=== PATIENT | female | born 1990 | race Caucasian/White ===

== ENCOUNTER 2021-02-02 14:01 | Emergency (ER) | payer MEDICAID ==
[~2021-02-02] VITALS: Ht 170.2 cm; Wt 149.7 kg
[2021-02-02 14:34] VITALS: BP_SYST 149
[2021-02-02 15:27] LABS: BASOPHILS % (AUTO) 0.5 % (0.0-2.0); EOSINOPHILS # (AUTO) 0.1 K/uL (0.0-0.4); HEMATOCRIT 41.7 % (36-48); HEMOGLOBIN 13.9 g/dL (12.0-16.0); LYMPHOCYTES # (AUTO) 1.8 K/uL (1.0-5.5); LYMPHOCYTES % (AUTO) 26.8 % (20.5-51.5); MEAN CORPUSCULAR HEMOGLOBIN 27 pg (27-31); MEAN CORPUSCULAR HGB CONC 34 % (32-36); MEAN CORPUSCULAR VOLUME 82 fL (79.0-98.0); MONOCYTES # (AUTO) 0.5 K/uL (0.0-1.0); MONOCYTES % (AUTO) 7.4 % (1.7-9.3); NEUTROPHILS # (AUTO) 4.4 K/uL (1.8-7.7); NEUTROPHILS % (AUTO) 64.3 % (40.0-70.0); PLATELET COUNT (AUTO) 261 K/uL (130-430); RED CELL DISTRIBUTION WIDTH 13.4 % (9.0-15.0); WHITE BLOOD COUNT (AUTO) 6.8 K/uL (4.8-10.8)
[2021-02-02 15:34] LABS: BILIRUBIN,URINE 1+ (NEGATIVE); COLOR,URINE YELLOW (YELLOW); GLUCOSE,URINE 2+ (NEGATIVE); KETONES,URINE 2+ (NEGATIVE); LEUKOCYTE ESTERASE ,URINE NEGATIVE (NEGATIVE); NITRITE, URINE NEGATIVE (NEGATIVE); PH,URINE 5.5 (5.0-8.0); PROTEIN URINE 1+ (NEGATIVE); UROBILINOGEN,URINE 0.2 (0.2-1.0)
[2021-02-02 15:48] LABS: BLOOD, URINE TRACE (NEGATIVE); CLARITY/URINE HAZY (CLEAR)
[2021-02-02 15:58] LABS: CALCIUM 8.8 mg/dL (8.4-11.0); CREATININE 0.56 mg/dL (0.55-1.30); POTASSIUM 3.6 mmol/L (3.5-5.1)
[2021-02-02 15:58] LABS: BACTERIA,URINE FEW /HPF (None Seen); MUCUS,URINE None Seen /LPF (None Seen); RBC,URINE 0-3 /HPF (0-3); WBC,URINE 0-3 /HPF (0-3)
[2021-02-02 16:02] LABS: ALBUMIN 3.5 g/dL (3.4-4.8); TOTAL BILIRUBIN 0.5 mg/dL (0.0-1.0)
[2021-02-02] MEDS ORDERED: FAMO-132 PO (17:05)
[2021-02-02] MEDS ORDERED: MYLICON PO (17:05)
[2021-02-02 17:30] VITALS: BP_SYST 149
== END 2021-02-02 17:30 | disposition home or self-care (01) ==
LOC: SED 14:01
DX: R10.84 Generalized abdominal pain (principal); R19.7 Diarrhea, unspecified; E11.9 Type 2 diabetes mellitus without complications
CPT/HCPCS: 36415; 76376; 80053; 81000-TC; 81025; 83690-TC; 85025; 99284

== ENCOUNTER 2021-05-05 18:17 | Emergency (ER) | payer MEDICAID ==
[~2021-05-05] VITALS: Ht 172.7 cm; Wt 136.1 kg
[~2021-05-05 18:17] MED LIST: FAMO-132 PO; SIME40DR40 PO
[2021-05-05 18:28] VITALS: BP_SYST 148
[2021-05-05 19:58] LABS: BILIRUBIN,URINE NEGATIVE (NEGATIVE); COLOR,URINE YELLOW (YELLOW); GLUCOSE,URINE 3+ (NEGATIVE); KETONES,URINE 1+ (NEGATIVE); LEUKOCYTE ESTERASE ,URINE NEGATIVE (NEGATIVE); NITRITE, URINE NEGATIVE (NEGATIVE); PH,URINE 5.5 (5.0-8.0); PROTEIN URINE NEGATIVE (NEGATIVE); UROBILINOGEN,URINE 0.2 (0.2-1.0)
[2021-05-05 20:03] LABS: BLOOD, URINE TRACE (NEGATIVE); CLARITY/URINE HAZY (CLEAR)
[2021-05-05 20:08] LABS: BACTERIA,URINE FEW /HPF (None Seen); RBC,URINE 0-3 /HPF (0-3)
[2021-05-05 20:09] LABS: MUCUS,URINE None Seen /LPF (None Seen); YEAST,URINE Moderate /HPF (None Seen)
[2021-05-05] MEDS ORDERED: NITR-85 PO (20:17)
[2021-05-05] MEDS ORDERED: DIF100 PO (20:17)
[2021-05-05 20:33] VITALS: BP_SYST 148
== END 2021-05-05 20:33 | disposition home or self-care (01) ==
LOC: SED 18:17
DX: B37.3 Candidiasis of vulva and vagina (principal); N39.0 Urinary tract infection, site not specified; E11.9 Type 2 diabetes mellitus without complications; Z79.899 Other long term (current) drug therapy
CPT/HCPCS: 81000; 81025; 87086; 99283

== ENCOUNTER 2021-07-11 21:24 | Emergency (ER) | payer MEDICAID ==
[~2021-07-11] VITALS: Ht 172.7 cm; Wt 130.6 kg
[~2021-07-11 21:24] MED LIST changes: +DIF100 PO; +NITR-85 PO
[2021-07-11 21:47] VITALS: BP_SYST 132
--- NOTE | 2021-07-11 21:47 | NUR ---
Came in ER AMBULATORY from home, AAOX4, breathing spontaneously at room air, not in distress noted. With chief complaints low back pain for several days, history of sciatica and DM, vital signs stable
--- NOTE | 2021-07-11 22:21 | NUR ---
Seen and examined by Dr. Mosher, ER Attending
[2021-07-11] MEDS ORDERED: CYCL10TA24 PO (22:26)
[2021-07-11] MEDS ORDERED: IBUP-1971 PO (22:26)
[2021-07-11] MEDS ORDERED: KETOROLAC TROMETHAMINE 60 MG/2 ML VIAL IM ONE (22:30)
[2021-07-11] MEDS ORDERED: CYCLOBENZAPRINE HCL 10 MG TABLET (FLEXERIL) PO ONE (22:30)
--- NOTE | 2021-07-11 22:56 | NUR ---
Medications given as ordered, health teaching provided and verbalized understanding
[2021-07-11 23:02] VITALS: BP_SYST 122
--- NOTE | 2021-07-11 23:02 | NUR ---
Patient given written and verbal discharge instructions and verbalizes understanding. ER MD discussed with patient the results and treatment provided. Patient in stable condition. ID arm band removed. Rx of flexeril, motrin given. Patient educated on pain management and to follow up with PMD. Pain Scale 0/10. Opportunity for questions provided and answered. Medication side effect fact sheet provided.
== END 2021-07-11 23:02 | disposition home or self-care (01) ==
LOC: SED 21:24
DX: M54.5 Low back pain (principal); E11.9 Type 2 diabetes mellitus without complications; Z79.899 Other long term (current) drug therapy
CPT/HCPCS: 81025; 96372; 99283; J1885